=== PATIENT | male | born 1960 | race African-American/Black ===

== ENCOUNTER 2022-06-18 10:21 | Emergency (ER) | payer MEDICAID ==
[~2022-06-18] VITALS: Ht 177.8 cm; Wt 70.0 kg
[2022-06-18 10:23] VITALS: BP 114/63
[2022-06-18] MEDS ORDERED: OXYCODONE HCL/ACETAMINOPHEN 5/325MG TABLET PO ONE (13:45)
[2022-06-18 15:06] LABS: BASOPHILS % 0.3 % (0.0-2.0); EOSINOPHILS % 0.3 % (0.0-5.0); HEMATOCRIT. 28.9 % (42.0-52.0); HEMOGLOBIN. 9.7 g/dL (14.0-18.0); LYMPHOCYTES % 17.5 % (20.0-50.0); MEAN CORPUSCULAR VOLUME 95.1 fL (80.0-94.0); MEAN PLATELET VOLUME 6.9 fl (7.4-10.4); MONOCYTES % 5.3 % (2.0-8.0); NEUTROPHILS % 76.6 % (40.0-76.0); PLATELET 253 x1000/uL (130-400); RED BLOOD CELL COUNT 3.03 mill/uL (4.7-6.1); RED CELL DISTRIBUTION WIDTH 16.1 % (11.6-14.6)
[2022-06-18 15:11] LABS: CHLORIDE 105 mEq/L (98-107)
[2022-06-18] MEDS ORDERED: IBUPROFEN 600MG TABLET PO ONE (15:30)
[2022-06-18 15:34] LABS: BG BASE EXCESS -4.3 mmol/L (-2.0-2.0); BG CARBOXYHEMOGLOBIN 0.5 % (0.5-1.5); BG DEOXYHEMOGLOBIN 1.3 % (0.0-5.0); BG FRACTION INSPIRED OXYGEN 21; BG HCO3 ACT 17.2 mmol/L (22.0-26.0); BG METHEMOGLOBIN 0.3 % (0.0-1.5); BG OXYGEN SATURATION 98.7 % (92.0-98.5); BG OXYHEMOGLOBIN 97.9 % (94.0-97.0); BG PCO2 21.4 mmHg (35.0-45.0); BG PH 7.523 (7.350-7.450); BG PO2 108.3 mmHg (75.0-100.0); BG SAMPLE SITE LEFT BRACHIAL; BG TOTAL HEMOGLOBIN 9.8 g/dL (12.0-18.0); BG VENT MODE ROOM AIR
[2022-06-18] MEDS ORDERED: IBUPROFEN 600MG TABLET PO NR (16:45)
[2022-06-18] MEDS ORDERED: OXYCODONE HCL/ACETAMINOPHEN 5/325MG TABLET PO NR (16:45)
[2022-06-18] MEDS ORDERED: IBUP-2028 MT (16:46)
== END 2022-06-18 17:15 | disposition home or self-care (01) ==
LOC: ER 10:21
DX: R06.02 Shortness of breath (principal); M79.18 Myalgia, other site; Z87.01 Personal history of pneumonia (recurrent); Z85.9 Personal history of malignant neoplasm, unspecified
CPT/HCPCS: 36415; 36600; 71045; 80053; 82375; 82805; 84484; 85025; 93005; 99285